=== PATIENT | female | born 1990 | race Two or more races ===

== ENCOUNTER 2017-10-17 12:38 | Emergency (ER) | payer OTHER ==
[~2017-10-17] VITALS: Ht 170.2 cm; Wt 61.2 kg
[2017-10-17 12:43] VITALS: BP 100/60
== END 2017-10-17 12:54 | disposition home or self-care (01) ==
LOC: ER 12:40
DX: J06.9 Acute upper respiratory infection, unspecified (principal); Z91.018 Allergy to other foods
CPT/HCPCS: A4606; Z7502; Z7610